=== PATIENT | male | born 1955 | race Caucasian/White ===

== ENCOUNTER 2018-04-25 09:26 | Inpatient (IN) | payer OTHER ==
[~2018-04-25] VITALS: Ht 167.6 cm; Wt 77.1 kg
[2018-04-25] MEDS ORDERED: ARMOUR THYROID30 M1 PO (09:45)
--- NOTE | 2018-04-25 09:46 | NUR ---
SE RECIBE PTE ALERTA Y ORIENTADO X3, EL CUAL REFIERE VENIR POR HEMORROIDES, SANGRADO AL EVACUAR, DOLOR EN LA ERIC Y PROBLEMAS AL ORINAR DESDE HACE 4 SEN.
--- NOTE | 2018-04-25 10:34 | NUR ---
MS INGA ORIENTA A PACIENTE SOBRE ORDENES MEDICAS. ADMINISTRA MEDICAMENTOS, CANALIZA PACIENTE Y COLECTA MUESTRAS DE LABORATORIO ORDENADAS BAJO MEDIDAS ASEPTICAS. PENDIENTE A RESULTADOS DE LABORATORIO Y CT SCAN PARA RE-EVALUACION MEDICA.
== END 2018-05-02 20:57 | disposition home or self-care (01) | DRG 394 ==
LOC: ER 09:26 → MEDI 22:08 → SEC-K 22:08 → MEDI 22:44 → MEDJ 22:44 → MEDI 04-29 14:10
PROVIDERS: ADMIT Internal Medicine
PROC: BW21ZZZ Computerized Tomography (CT Scan) of Abdomen and Pelvis (ICD-10-PCS; principal; 2018-04-25)
DX: K64.8 Other hemorrhoids (principal); N39.0 Urinary tract infection, site not specified; N41.0 Acute prostatitis; N40.1 Benign prostatic hyperplasia with lower urinary tract symptoms; E86.0 Dehydration; R33.8 Other retention of urine; K45.8 Other specified abdominal hernia without obstruction or gangrene

== ENCOUNTER 2019-02-21 18:02 | Outpatient (CLI) | payer OTHER ==
[~2019-02-21 18:02] MED LIST: ARMOUR THYROID30 M1 PO
== END 2019-02-21 18:55 | disposition home or self-care (01) ==
LOC: LAB 18:02
DX: R97.20 Elevated prostate specific antigen [PSA] (principal)